=== PATIENT | male | born 1945 | race Caucasian/White ===

== ENCOUNTER → 2024-02-28 12:23 | Outpatient (REF) | payer OTHER, SELFPAY | LOC: HWRAD 12:23 | PROVIDERS: ATTENDING PHYSICIAN Physician Assistant; FAMILY PHYSICIAN Family Medicine | DX: R06.02 Shortness of breath (principal) | CPT/HCPCS: 71046 ==

== ENCOUNTER 2024-04-12 13:00 | Outpatient (RCR) | payer OTHER, SELFPAY | END 2024-04-12 23:59 | disposition home or self-care (01) | LOC: PURB 13:00 | PROVIDERS: ATTENDING PHYSICIAN Internal Medicine; FAMILY PHYSICIAN Family Medicine | DX: J44.9 Chronic obstructive pulmonary disease, unspecified (principal) | CPT/HCPCS: G0237 ==

== ENCOUNTER 2024-05-22 14:45 | Outpatient (RCR) | payer OTHER, SELFPAY | END 2024-05-22 23:59 | disposition home or self-care (01) | LOC: PURB 14:45 | PROVIDERS: ATTENDING PHYSICIAN Internal Medicine; FAMILY PHYSICIAN Family Medicine | DX: J44.9 Chronic obstructive pulmonary disease, unspecified (principal); R06.02 Shortness of breath; G47.19 Other hypersomnia; G47.8 Other sleep disorders; Z87.891 Personal history of nicotine dependence | CPT/HCPCS: 94625; G0239 ==

== ENCOUNTER 2024-06-21 14:45 | Outpatient (RCR) | payer OTHER, SELFPAY | END 2024-06-22 09:40 | disposition home or self-care (01) | LOC: PURB 14:45 | PROVIDERS: ATTENDING PHYSICIAN Internal Medicine; FAMILY PHYSICIAN Family Medicine | DX: J44.9 Chronic obstructive pulmonary disease, unspecified (principal); R06.02 Shortness of breath | CPT/HCPCS: G0239 ==